=== PATIENT | male | born 1980 ===

== ENCOUNTER 2016-05-18 23:00 | Emergency (ER) | payer OTHER ==
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
== END 2016-05-19 02:03 | disposition home or self-care (01) ==
LOC: ED 23:00
DX: R51 Headache (principal); M25.522 Pain in left elbow; M25.562 Pain in left knee; V43.52XA Car driver injured in collision with other type car in traffic accident, initial encounter; Y92.410 Unspecified street and highway as the place of occurrence of the external cause